=== PATIENT | female | born 1995 | race Caucasian/White ===

== ENCOUNTER → 2017-01-18 13:53 | Observation (INO) ==
--- NOTE | 2017-01-18 13:48 | Discharge Summary ---
Date of Encounter: 01/18/17 Time of Encounter: 13:48 - Discharge Diagnosis (1) Vaginal bleeding during , antepartum Priority: Primary Status: Acute Comments: Patient presents to L&D for concerns of vaginal bleeding that occurred after intercourse. She states that this occurred two days ago, initally bright red when wiped in bathroom and then light pink for the next day. Pt has not noted any bleeding today. States feel like her abdomen is getting tight on occasion. but not painful. Denies any loss of fluid, discharge or any other vaginal bleeding. She reports good movement. Denies any complications with the FHR reactive on the monitor baseline 135 Speculum exam was performed, no bleeding, thick white normal discharge of noted. Cervix was visually closed Recommended pelvic rest for 2-3 weeks and follow up with Dr. Worthington (2) 32 weeks gestation of Priority: Secondary Status: Acute Comments: patient is 32w1d. Patient reported vaginal bleeding after intercourse. no other complaints or complications with the . - Discharge Medications Home Medications: Vit #108/Iron/FA [ One Tablet] 1 each PO DAILY #90 tablet 04/12 [Rx] Allergies/Adverse Reactions: 3 Allergy/AdvReac Type Severity Reaction Status Date / Time No Known Drug Allergies Allergy See Verified 01/18/17 13:12 Comments Date of admission: 01/18/17 12:45 Primary care physician: Jodi Capellan, Discharging clinician: Kevin Lagunas Anticipated date of discharge: 01/18/17 - Patient Status Disposition: Home, Self-Care Condition: Good Functional capacity at discharge: independent ambulation Overall status at discharge: patient is back to baseline - Discharge Instructions Follow Up With: Jodi Capellan MD [Primary Care Provider] - Additional Instructions: LABOR AND DELIVERY DISCHARGE INSTRUCTIONS Signs and Symptoms to be Reported to your Doctor Immediately: * Sudden gush, continuous or intermittent lead of fluid from vagina (note the time of gush and color of fluid) * Onset of bright red vaginal bleeding with or without pain (if you had a vaginal exam during this visit you may notice some dark red spotting. This is normal.) * Lower abdominal cramping or backache that is premenstrual-like feeling. * More than 6 contractions in one hour. * Burning during urination, having to urinate more frequently or pain in your mid-back. * A change in the baby's activity. This could be an increase or decrease in activity. * Severe headache which does not go away with tylenol. * Sudden swelling in the face, hands, arms and/or legs. * Upper abdominal pain - sometimes associated with heartburn or nausea and is not relieved by Maalox, Mylanta or Tums. * Dizziness or blurred vision or visual disturbances (seeing stars/lights). * Kick Counts One hour after a meal, lay down on one side in a quiet place. Count the number of lorie the baby moves during an hour. If less than 6 movements, notify your physician. Diet: *Force fluids - 8-10 tall glasses of fluid per day. May include popsicles and jello. 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 - Extremities Exam Extremities exam IM: Present: full ROM, normal capillary refill. Absent: calf tenderness, pedal edema - Neurological Exam Neurological exam: alert, oriented X3 - VTE Reasons for not Prescribing Prophylaxis: Treatment not Indicated - Low risk for VTE
[2017-01-18 14:26] LABS: Bilirubin,Urine Negative (Negative); Blood,Urine Negative (Negative); Clarity,Urine Clear (Clear); Color,Urine Yellow (Yellow); Glucose,Urine (UA) Normal (Normal); Ketones,Urine Negative (Negative); Leukocyte Esterase,Urine Small (Negative); Nitrite,Urine Negative (Negative); Protein,Urine Negative (Neg-Trace); Specific Gravity,Urine 1.013 (1.010-1.025); Urobilinogen,Urine Normal (Normal)
[2017-01-18 14:28] LABS: Bacteria,Urine None Seen per hpf (None-Few); Hyaline Casts,Urine None Seen per lpf (None-Few); RBC,Urine 0-3 per hpf (0-3); Squamous Epithelial Cell,Urine Many per lpf (None-Few); WBC,Urine 0-3 per hpf (0-3)
[2017-01-18 14:33] LABS: Amphetamine Screen,Urine Negative ng/mL (Cutoff=1000); Barbiturate Screen,Urine Negative ng/mL (Cutoff=200); Benzodiazepines Screen,Urine Negative ng/mL (Cutoff=200); Cannabinoid Screen,Urine Negative ng/mL (Cutoff = 50); Cocaine Screen,Urine Negative ng/mL (Cutoff= 300); Opiate Screen,Urine Negative ng/mL (Cutoff=300); Phencyclidine Screen,Urine Negative ng/mL (Cutoff=25)
== END | disposition home or self-care (01) ==
LOC: 1NENULAB
PROVIDERS: ADMIT Obstetrics & Gynecology; ATTEND Obstetrics & Gynecology

== ENCOUNTER 2017-03-06 16:07 | Inpatient (IN) ==
[2017-03-06 12:19] LABS: Basophils % 0.2 %; Eosinophils # 0.1 K/mcL (0.0-0.6); Eosinophils % 0.3 %; Hematocrit 41.8 % (35.3-44.9); Hemoglobin 13.6 g/dL (11.5-15.4); Immature Granulocytes % 0.5 % (0-4); Lymphocytes # 1.3 K/mcL (0.6-4.6); Mean Corpuscular HGB Conc 32.5 g/dL (31.6-35.5); Mean Corpuscular Hemoglobin 27.7 pg (28.0-33.3); Mean Corpuscular Volume 85.1 fL (83.0-100.0); Monocytes # 0.9 K/mcL (0.0-1.3); Monocytes % 5.4 %; Neutrophils # 14.1 K/mcL (1.6-8.9); Platelet Count 277 K/mcL (140-400); Red Blood Count 4.91 M/mcL (3.82-4.97); Red Cell Distribution Width 13.6 % (11.5-14.5); Segmented Neutrophils % 85.6 %
[2017-03-06 12:35] LABS: Alanine Aminotransferase 12 Units/L (7-52); Aspartate Amino Transferase 20 Units/L (13-39); BUN/Creatinine Ratio 14 (6-26); Blood Urea Nitrogen 11 mg/dL (6-20); Lactate Dehydrogenase 170 Units/L (140-271); Uric Acid 4.4 mg/dL (2.3-7.6); eGFR For African Americans > 60 (> 60); eGFR For Non-African Americans > 60 (> 60)
--- NOTE | 2017-03-06 15:40 | OB/GYN History & Physical ---
Date of Encounter: 03/06/17 Time of Encounter: 15:34 Assessment and Plan (1) 38 weeks gestation of Current visit: No Status: Acute (2) Hx of calculus of kidney during Current visit: No Status: Acute Retroperitoneum Ultrasound 03/06/17 11:58 IMPRESSION: Nonobstructing bilateral renal calculi. Moderate bilateral hydronephrosis, right greater than left. This may be secondary to late , although, ureteral calculus would be in the differential. Discussed with Dr. Guan. Pain management with dilaudid at this time, IV hydration LR @200/hr, Will start IOL at midnight when 39+0 weeks. (3) Encounter for induction of labor Current visit: Yes Status: Acute Induction of labor at midnight when 39+0 weeks with cytotec and cervical navarrete. History of Present Illness Chief complaint: Left flank pain HPI: Ms. Diaz is a 21 year old female under care of Dr. Worthington presents to triage with complaints of left flank pain that is began at 9am this morning, pt rates pain 10/10. Pt states she has similar pain earlier in and thinks she had kidney stones, but only took Tylenol. ED report shows no kidney stones. Reports good movement, states feels occasional cramping or contractions and denies leaking of fluid. Labs:A+, Rubella non-immune, Varicella immune, GBS negative, all other serologies negative. Past Med Surg Social Fam HX - Past Medical History Medical history: no medical history Psychiatric history: no psych history - Past Surgical History Surgical History: no surgical history - Social History Smoking Status: Never smoker Smokeless Tobacco Status: No Alcohol use: none Drug use: none - Family History Mother Adopted: No Living Status: Still Living Hx Family Cardiac Disorders: No Hx Family Respiratory Disorders: No Hx Family Cancer: No Hx Family GI Disorders: No Hx Family Endocrine Disorder: No Hx Family Neuromuscular Disorders: No Hx Family Neurologic Disorders: No Hx Family HEENT Disorders: No Hx Family Autoimmune Disorders: No Obstetrical History - Pregnancies : 2 Para: 0 Term: 0 : 0 Ab's: 1 Livin Medications and Allergies Vit #108/Iron/FA [ One Tablet] 1 each PO DAILY #90 tablet 04/12 [Rx] 3 Allergy/AdvReac Type Severity Reaction Status Date / Time No Known Drug Allergies Allergy See Verified 01/18/17 13:12 Comments Exam - Constitutional Constitutional: well developed, well nourished, average body habitus - Neck Neck exam: full ROM - Lungs Respiratory exam: CTAB - Cardiovascular Cardiovascular exam: RRR - Abdomen Abdomen: Present: bowel sounds normal, gravid, non tender - Extremities Extremities exam: normal inspection - Vagina Vagina: Present: normal moisture - Cervix Dilation: 3 Effacement: 80 Station: -2 - Uterus Uterus exam: Present: normal size, normal contour (Left CVA tenderness. ) Results Result Diagrams: 03/06/17 12:00 03/06/17 12:00 Abnormal lab results WBC 16.5 K/mcL (4.3-11.1) H 03/06/17 12:00 MCH 27.7 pg (28.0-33.3) L 03/06/17 12:00 Neutrophils # 14.1 K/mcL (1.6-8.9) H 03/06/17 12:00 All other labs normal. - VTE Reasons for not Prescribing Prophylaxis: Treatment not Indicated - Low risk for VTE
[2017-03-06 15:46] LABS: Bilirubin,Urine Negative (Negative); Blood,Urine Large (Negative); Clarity,Urine Cloudy (Clear); Color,Urine Yellow (Yellow); Glucose,Urine (UA) Normal (Normal); Ketones,Urine Trace mg/dL (Negative); Leukocyte Esterase,Urine Large (Negative); Nitrite,Urine Negative (Negative); PH,Urine 6.5 pH Units (5.0-8.0); Protein,Urine Negative (Neg-Trace); Specific Gravity,Urine 1.008 (1.010-1.025); Urobilinogen,Urine Normal (Normal)
[2017-03-06 15:47] LABS: Hyaline Casts,Urine None Seen per lpf (None-Few); RBC,Urine 15-30 per hpf (0-3); Squamous Epithelial Cell,Urine Many per lpf (None-Few)
[2017-03-06 15:53] LABS: Amphetamine Screen,Urine Negative ng/mL (Cutoff=1000); Barbiturate Screen,Urine Negative ng/mL (Cutoff=200); Benzodiazepines Screen,Urine Negative ng/mL (Cutoff=200); Cannabinoid Screen,Urine Negative ng/mL (Cutoff = 50); Cocaine Screen,Urine Negative ng/mL (Cutoff= 300); Opiate Screen,Urine Negative ng/mL (Cutoff=300); Phencyclidine Screen,Urine Negative ng/mL (Cutoff=25)
[2017-03-06 16:02] LABS: Bacteria,Urine Few per hpf (None-Few)
[~2017-03-06 16:07] MED LIST: *HR* Nalbuphine 20 MG/ML AMPUL IVP PRN; *HR* Nalbuphine 20 MG/ML AMPUL ONE; Famotidine 20 MG/2 ML VIAL IVP PRN; Naloxone 0.4 MG/ML INJ IVP PRN; Ondansetron 4 MG/2 ML VIAL IVP PRN; Ringers Solution, Lactated 1,000 ML IVC ONE; Ringers Solution, Lactated 1,000 ML IVC SCH; Ringers Solution, Lactated 1,000 ML ONE
[2017-03-06] MEDS: *HR* HYDROmorphone 2 MG/ML SYRINGE IVP PRN (16:07)
[2017-03-06] MEDS ORDERED: Ringers Solution, Lactated 1,000 ML IVC SCH (16:09)
[2017-03-06] MEDS ORDERED: Bupivacaine-MPF 0.25% 10 ML VIAL ONE (18:37)
[2017-03-06] MEDS ORDERED: Epidural Premix (fent/bupiv) 110 ML EP ONE (18:37)
[2017-03-06] MEDS ORDERED: *HR* FentaNYL (PF) 100 MCG/2 ML VIAL ONE (18:37)
--- NOTE | 2017-03-06 19:15 | Anesthesia Evaluation PreOp ---
Date of Encounter: 03/06/17 Time of Encounter: 19:13 - Past History Planned Operation: ELLEN Cardiac History: Denies any Significant Hx Pulmonary History: Denies Any Significant HX PIPE CAULKER History: Denies Any Significant HX Other Medical History: Denies Any Significant HX Anesthesia History: No Prior Anesthetic Complications (never had any procedure requiring GA or NA; denies family h/o GA complications) : Yes Test: Positive Alcohol Use: none Drug use: none Medications and Allergies Vit #108/Iron/FA [ One Tablet] 1 each PO DAILY #90 tablet 04/12 [Rx] 3 Allergy/AdvReac Type Severity Reaction Status Date / Time No Known Drug Allergies Allergy See Verified 01/18/17 13:12 Comments - Meds/Allergy Pre-op Review Medications Reviewed: Yes Allergies Reviewed: Yes Beta Blockers on Current Med List: No Anesthesia Results - Labs 03/06/17 12:00 03/06/17 12:00 Anesthesia Exam 135/86, HR 96, RR 18 Height: 1.57m Weight: 71kg NPO (# of Hours): solids > 8hrs Pain Scale: 5 Pain Scale Used: Jauregui-Padilla (Faces) - HEENT Pupil (Motor): Pupils equal Mallampati: II Teeth: Normal Oral Opening: Greater than 3 - PIPE CAULKER LOC: Oriented PIPE CAULKER Motor: Normal RUE, Normal LUE, Normal RLE, Normal LLE, Normal Face PIPE CAULKER Sensory: Normal: RUE, LUE, RLE, LLE, Face - Cardiac Rhythm: Regular Murmur: None - Pulmonary Breath Sounds: bilateral Clear Respiratory Effort: Symmetrical Anesthesia Assess/Plan ASA Score: 2 Modified [place] Scale for Level of Consciousness: Cooperative, oriented, and tranquil Anesthetic Plan: Regional Autologous Blood: No Monitoring Plan: Standard Monitors Recovery Plan: Other
[2017-03-06] MEDS ORDERED: Bupivacaine-MPF 0.25% 10 ML VIAL EP ONE (19:17)
[2017-03-06] MEDS ORDERED: *HR* FentaNYL (PF) 100 MCG/2 ML VIAL EP ONE (19:17)
--- NOTE | 2017-03-06 19:17 | Anesthesia Procedures ---
Date of Encounter: 03/06/17 Time of Encounter: 19:15 Procedures: Anesthesia - Epidural/Spinal Patient ID/Chart reviewed: Yes Patient examined: Yes OB Eval: Gestational age: 38 weeks 6 days OB Eval: : 2 OB Eval: Hx Para: 0 OB Eval: Dilated at (cm): 3 OB Eval: Contractions: Non-stressed pattern Consent Obtained: Yes Supplemental Oxygen: None/Room Air Site Prep: Aseptic Technique, Sterile prep and drape, Povidone-Iodine 1% Patient position: upright Local Anesthetic: Lidocaine 1% Amount of Local Anesthetic used: 3 Touhy Needle Gauge: 18 Touhy Needle Depth (cm): 5 Catheter Depth at Skin (cm): 10 Test Dose (1.5% Lido + Epi): Volume given (mls): 5 Test Dose Result: Negative Loading Dose: 0.25% Marcaine (mls): 5 Loading Dose: Fentanyl (mcg): 100 Loading Dose Administered: Thru Catheter Infusion Med: 0.125% Bupivacaine w/ 2 mcg/ml Fentanyl Infusion Rate (mls/hr): [address]: Tegaderm, Tape Interspace Used: L4-L5 Loss of Resistance (COOPER): Yes Blood: No CSF: No Paresthesia: No Vitals + FHT's: please see Thom LEHMAN's electronic records for VS
[2017-03-06] MEDS ORDERED: Epidural Premix (fent/bupiv) 110 ML EP SCH (19:30)
--- NOTE | 2017-03-06 23:41 | OB Labor Progress Note ---
Date of Encounter: 03/06/17 Time of Encounter: 23:39 Labor Progress Note - Subjective Subjective: Pt resting comfortable with epidural - Vital Signs Vital Signs: 137/81 - Cervix Cervix: 3/90/-2 - Heart Tones Heart Tones: 135/moderate/+accels/-decels - [place]: 2-4 - Interventions Interventions: Cervical navarrete placed without difficulty - Plan Plan: Start pitcoin at 0000 Plan of care discussed with Dr. Guan . Anticipate
[2017-03-07] MEDS ORDERED: Oxytocin 20 units/ LR 1000 mL 20 UNIT/1,000 ML BAG IVC ONE (00:13)
[2017-03-07] MEDS ORDERED: Oxytocin 20 units/ LR 1000 mL 20 UNIT/1,000 ML BAG IVC SCH ×2 (00:30→17:09)
[2017-03-07] MEDS ORDERED: Epidural Premix (fent/bupiv) 110 ML EP ONE ×2 (01:55→08:02)
[2017-03-07] MEDS ORDERED: Penicillin G Potassium 5,000,000 UNIT in 0.9 % Sodium Chloride Mini Bag 100 ML IVPB ONE (07:04)
[2017-03-07] MEDS ORDERED: Acetaminophen 325 MG TABLET PO PRN ×2 (07:10→17:09)
--- NOTE | 2017-03-07 07:24 | OB Labor Progress Note ---
Date of Encounter: 03/07/17 Time of Encounter: 07:22 Labor Progress Note - Subjective Subjective: Pt resting comfortable with epidural - Cervix Cervix: [address] Guan - Heart Tones Heart Tones: 145/moderate/+accels/-decels - [place]: 1.5-3 - Interventions Interventions: AROM per Dr. Guan - Plan Plan: Continue pitocin per policy Anticipate
[2017-03-07] MEDS ORDERED: Penicillin G Potassium 2,500,000 UNIT in D5% in Water 100 ML IVPB SCH (08:00)
[2017-03-07] MEDS ORDERED: *HR* FentaNYL (PF) 100 MCG/2 ML VIAL ONE (08:48)
[2017-03-07] MEDS ORDERED: Bupivacaine-MPF 0.25% 10 ML VIAL ONE (08:48)
[2017-03-07] MEDS ORDERED: Lidocaine/EPI 1:200k 2% PF 20 ML VIAL ONE (08:48)
--- NOTE | 2017-03-07 08:56 | Anesthesia Progress Note ---
Date of Encounter: 03/07/17 Time of Encounter: 08:55 Anesthesia Note - Note Note: 03/07/17 08:55 called for increased pain during labor. pt having more kidney pain d/t active and acute kidney stones. bolus given of 2.5 ml of 2% lidocaine with epi and 2.5ml of .25% bupivacaine with 100 mcg fentanyl. pt tolerating labor. at 8 cm. increased rate to 18 ml/hr
[2017-03-07] MEDS ORDERED: Penicillin G Potassium 2,500,000 UNIT in 0.9 % Sodium Chloride 100 ML IVPB SCH (11:00)
[2017-03-07] MEDS ORDERED: ceFAZolin 1,000 MG in Water for inj. (sterile) 20 ML 10 ML IVP SCH ×2 (11:00→16:00)
--- NOTE | 2017-03-07 11:29 | OB Labor Progress Note ---
Date of Encounter: 03/07/17 Time of Encounter: 11:28 Labor Progress Note - Subjective Subjective: Pt comfortable following redose of epidural. - Cervix Cervix: 9cm per RN - Heart Tones Heart Tones: Category I - [place]: 1-2 minutes - Plan Plan: Continue to monitor and reposition. Anticipate .
[2017-03-07] MEDS ORDERED: *HR* HYDROmorphone (PF) 1 MG/ML SYRINGE IVP ONE (14:40)
--- NOTE | 2017-03-07 14:45 | OB/GYN Procedure Note ---
Delivery - Delivery Date: 03/07/17 Provider: Christina Morgan Intrapartum events: none Delivery induction: oxytocin, navarrete Delivery augmentation: rupture of membranes Delivery monitor: external FHT, external uterine Anesthesia: epidural Estimated Blood Loss: 150 - Infant (s) Infant A Delivery Date: 03/07/17 Delivery Time: 14:18 Presentation: vertex Position: OA Route of delivery: Gender: Female Viability: Viable Pounds: 7 Ounces: 3 at 1 minute: 2 at 5 mins: 3 at 10 mins: 4 Shoulder Dystocia: encountered Shoulder Dystocia Maneuvers: Tomeka maneuver, suprapubic pressure, Mcguire Screw maneuver Shoulder dystocia time elapsed: 15 seconds Specimens collected: cord blood, venous cord gases, arterial cord gases Placenta: spontaneous Cord: nuchal cord, 3 umbilical vessels, delivered through nuchal - Repair Episiotomy: none Laceration Description: None - Complications Delivery complications: none - Disposition Mom disposition: stable in LDR [place] disposition: taken to nursery - Comments Comments: Pt progressed normally to over intact perineum for viable female . A tight nuchal was delivered through. A shoulder dystocia was encountered and tomeka maneuver and suprapubic pressure were initiated. The infant was in OTTO position. Gentle pressure was applied to the posterior aspect of the anterior shoulder. The shoulders then delivered under maternal expulsive effort only. After stimulation the infant was noted to have poor tone so the cord was clamped and cut and the was taken to the warmer for further assessment. The placenta delivered spontaneous and intact. A right labial laceration was noted but was hemostatic and not repaired. EBL 150ml.
[2017-03-07] MEDS: *HR* HYDROmorphone 2 MG/ML SYRINGE IVP PRN (14:47)
[2017-03-07] MEDS ORDERED: Ibuprofen 600 MG TABLET PO PRN (17:09)
[2017-03-07] MEDS ORDERED: Measles/Mumps/Rubella Vacc 0.5 ML VIAL SQ PRN (17:09)
[2017-03-07] MEDS ORDERED: *HR* HYDROcodone/Acet 5/325 mg TABLET PO PRN (17:09)
[2017-03-07] MEDS ORDERED: cefTRIAXone 2,000 MG in Water for inj. (sterile) 20 ML 20 ML IVP SCH (18:00)
[2017-03-07 18:18] LABS: Basophils % 0.2 %; Hemoglobin 12.6 g/dL (11.5-15.4)
[2017-03-07 18:20] LABS: Basophils # 0.1 K/mcL (0.0-0.2); Hematocrit 37.2 % (35.3-44.9); Immature Granulocytes % 0.7 % (0-4); Lymphocytes % 3.3 %; Mean Corpuscular HGB Conc 33.9 g/dL (31.6-35.5); Mean Corpuscular Hemoglobin 28.4 pg (28.0-33.3); Mean Platelet Volume 10.7 fL (9.4-12.4); Monocytes # 2.1 K/mcL (0.0-1.3); Monocytes % 6.9 %; Neutrophils # 26.6 K/mcL (1.6-8.9); Platelet Count 246 K/mcL (140-400); Red Blood Count 4.43 M/mcL (3.82-4.97); Red Cell Distribution Width 13.9 % (11.5-14.5); Segmented Neutrophils % 88.9 %
[2017-03-07 18:31] LABS: Potassium 3.8 mEq/L (3.5-5.1)
[2017-03-07 18:36] LABS: Platelet Estimate Normal (Normal)
[2017-03-07 18:37] LABS: Anisocytosis 1+ (Not Present)
[2017-03-07] MEDS ORDERED: *HR* HYDROmorphone (PF) 1 MG/ML SYRINGE IVP PRN (21:58)
[2017-03-07] MEDS ORDERED: Ondansetron 4 MG/2 ML VIAL IVP PRN (21:58)
[2017-03-08] MEDS: Ringers Solution, Lactated 1,000 ML IVC SCH ×2 (00:05→06:30)
[2017-03-08 06:45] LABS: Basophils # 0.1 K/mcL (0.0-0.2); Basophils % 0.3 %; Eosinophils # 0.1 K/mcL (0.0-0.6); Eosinophils % 0.6 %; Hematocrit 33.7 % (35.3-44.9); Hemoglobin 11.4 g/dL (11.5-15.4); Immature Granulocytes % 0.5 % (0-4); Mean Corpuscular HGB Conc 33.8 g/dL (31.6-35.5); Mean Corpuscular Hemoglobin 28.4 pg (28.0-33.3); Mean Corpuscular Volume 83.8 fL (83.0-100.0); Mean Platelet Volume 10.7 fL (9.4-12.4); Monocytes # 1.7 K/mcL (0.0-1.3); Monocytes % 7.6 %; Neutrophils # 18.4 K/mcL (1.6-8.9); Platelet Count 222 K/mcL (140-400); Red Blood Count 4.02 M/mcL (3.82-4.97); Red Cell Distribution Width 14.1 % (11.5-14.5)
[2017-03-08 06:54] LABS: BUN/Creatinine Ratio 11 (6-26); Blood Urea Nitrogen 13 mg/dL (6-20); Calcium 7.9 mg/dL (8.6-10.3); Carbon Dioxide 23 mEq/L (23-29); Chloride 106 mEq/L (98-107); Glucose 86 mg/dL (70-105); Osmolality,Calculated 279 (280-300); Potassium 3.8 mEq/L (3.5-5.1); Sodium 135 mEq/L (136-145); eGFR For African Americans > 60 (> 60); eGFR For Non-African Americans 56 (> 60)
--- NOTE | 2017-03-08 08:08 | Urology - Consult Note ---
Date of Encounter: 03/08/17 Time of Encounter: 08:06 - Assessment and Plan (1) Left ureteral calculus Current Visit: Yes Status: Acute Assessment and plan: to or today for cysto and left ureteral stent placement. Urology CN:HPI Consult date: 03/08/17 Reason for consult Urology: Other (left upj stone) Requesting physician: Christina Morgan History of present illness: Hanane is a 21 y/o female with history of kidney stones with . she states that she passed one stone during . severe left flank pain last night after delivery. ct showed left 8mm upj stone. pain controlled. serum creatinine improved overnight with fluids. Past Med Surg Social Fam HX - Past Medical History Medical history: no medical history Psychiatric history: no psych history - Past Surgical History Surgical History: no surgical history - Social History Smoking Status: Never smoker Smokeless Tobacco Status: No Alcohol use: none Drug use: none - Family History Mother Adopted: No Living Status: Still Living Hx Family Cardiac Disorders: No Hx Family Respiratory Disorders: No Hx Family Cancer: No Hx Family GI Disorders: No Hx Family Endocrine Disorder: No Hx Family Neuromuscular Disorders: No Hx Family Neurologic Disorders: No Hx Family HEENT Disorders: No Hx Family Autoimmune Disorders: No Medications and Allergies Vit #108/Iron/FA [ One Tablet] 1 each PO DAILY #90 tablet 04/12 [Rx] 3 Allergy/AdvReac Type Severity Reaction Status Date / Time No Known Drug Allergies Allergy See Verified 01/18/17 13:12 Comments Review of Systems - Constitutional no chills, no fatigue, no fever(s) - Cardiovascular no chest pain - Respiratory no cough Exam Initial Vital Signs Temp Pulse Resp BP Pulse Ox 97.9 F 84 16 121/91 96 03/07/17 17:30 03/07/17 17:30 03/07/17 17:30 03/07/17 17:30 03/07/17 17:30 - General physical appearance Present: well developed - Cardiovascular Cardiovascular exam IM: RRR - Abdomen Abdomen: Present: soft (mildly tender secondary to recent ) Urology Results - Labs 03/08/17 06:25 03/08/17 06:25 Abnormal lab results WBC 22.5 K/mcL (4.3-11.1) H 03/08/17 06:25 Hgb 11.4 g/dL (11.5-15.4) L 03/08/17 06:25 Hct 33.7 % (35.3-44.9) L 03/08/17 06:25 Neutrophils # 18.4 K/mcL (1.6-8.9) H 03/08/17 06:25 Monocytes # 1.7 K/mcL (0.0-1.3) H 03/08/17 06:25 Anisocytosis 1+ (Not Present) A 03/07/17 18:09 Sodium 135 mEq/L (136-145) L 03/08/17 06:25 Creatinine 1.22 mg/dL (0.60-1.20) H 03/08/17 06:25 Est GFR (Non-Af Amer) 56 (> 60) L 03/08/17 06:25 Calculated Osmolality 279 (280-300) L 03/08/17 06:25 Calcium 7.9 mg/dL (8.6-10.3) L 03/08/17 06:25 Urine Clarity Cloudy (Clear) A 03/06/17 15:36 Ur Specific Mallie 1.008 (1.010-1.025) L 03/06/17 15:36 Urine Ketones Trace mg/dL (Negative) H 03/06/17 15:36 Urine Blood Large (Negative) H 03/06/17 15:36 Ur Leukocyte Esterase Large (Negative) H 03/06/17 15:36 Urine Microscopic RBC 15-30 per hpf (0-3) H 03/06/17 15:36 Urine Microscopic WBC 5-15 per hpf (0-3) H 03/06/17 15:36 Ur Squamous Epith Cells Many per lpf (None-Few) H 03/06/17 15:36 Diabetes panel 03/07/17 03/08/17 Range/Units 18:09 06:25 Sodium 134 L 135 L (136-145) mEq/L Potassium 3.8 3.8 (3.5-5.1) mEq/L Chloride 105 106 (98-107) mEq/L Carbon Dioxide 20 L 23 (23-29) mEq/L BUN 17 13 (6-20) mg/dL Creatinine 1.78 H 1.22 H (0.60-1.20) mg/dL Glucose 111 H 86 (70-105) mg/dL Calcium 8.0 L 7.9 L (8.6-10.3) mg/dL Calcium panel 03/07/17 03/08/17 Range/Units 18:09 06:25 Calcium 8.0 L 7.9 L (8.6-10.3) mg/dL Pituitary panel 03/07/17 03/08/17 Range/Units 18:09 06:25 Sodium 134 L 135 L (136-145) mEq/L Potassium 3.8 3.8 (3.5-5.1) mEq/L Chloride 105 106 (98-107) mEq/L Carbon Dioxide 20 L 23 (23-29) mEq/L BUN 17 13 (6-20) mg/dL Creatinine 1.78 H 1.22 H (0.60-1.20) mg/dL Glucose 111 H 86 (70-105) mg/dL Calcium 8.0 L 7.9 L (8.6-10.3) mg/dL Adrenal panel 03/07/17 03/08/17 Range/Units 18:09 06:25 Sodium 134 L 135 L (136-145) mEq/L Potassium 3.8 3.8 (3.5-5.1) mEq/L Chloride 105 106 (98-107) mEq/L Carbon Dioxide 20 L 23 (23-29) mEq/L BUN 17 13 (6-20) mg/dL Creatinine 1.78 H 1.22 H (0.60-1.20) mg/dL Glucose 111 H 86 (70-105) mg/dL Calcium 8.0 L 7.9 L (8.6-10.3) mg/dL All other labs normal. - Imaging CT scan - abdomen: image reviewed CT scan - pelvis: image reviewed
--- NOTE | 2017-03-08 08:27 | OB/GYN Progress Note ---
Date of Encounter: 03/08/17 Time of Encounter: 08:25 - Assessment and Plan (1) Vaginal delivery Current Visit: Yes Status: Acute 21yo G2 now P2 s/p PPD1 Light lochia VSS NPO since MN last night Voiding spontaneously Pain well controlled Start breast pump today Continue care (2) Left ureteral calculus Current Visit: Yes Status: Acute Obstructing renal calculus seen on CT of abdomen Followed by urology Plan to have surgery today Subjective - Subjective Interval history: Pt reports pain well controlled. Reports light lochia and minimal cramping associated with involution. Patient reports: pain well controlled [place]: in NICU Objective - Latest Vital Signs Latest vital signs: Vital Signs Temp Pulse Resp BP Pulse Ox 03/08/17 04:15 98.0 F 83 14 112/70 98 03/07/17 19:30 98.1 F 80 18 125/82 98 03/07/17 18:30 98.1 F 80 16 131/85 98 03/07/17 17:30 97.9 F 84 16 121/91 96 Intake and Output 03/07/17 03/08/17 03/08/17 23:59 07:59 15:59 Intake Total 1400 / 1400 Output Total 400 / 400 1000 / 1000 Balance -400 / -400 400 / 400 Intake: IV Fluids 1000 / 1000 Lactated Ringers 1,000 ML @ 150 1000 / 1000 mls/hr IVC .[id number] [facility] Rx#: [id number] Oral 400 / 400 Output: Urine 400 / 400 1000 / 1000 Other: Weight 73.1 kg 71.713 kg Patient Weight 03/08/17 23:59 Weight 71.713 kg - Exam Lungs: bilateral: normal Chest: Normal S1, Normal S2 Extremities: Present: edema (pedal, non-pitting) Abdomen: Present: normal appearance, soft Uterus: Present: normal, firm Uterus Position: 1 Finger Below Umbilicus, Midline - Labs Labs: Laboratory Results - last 24 hr 03/07/17 03/07/17 03/08/17 18:09 18:09 06:25 WBC 29.9 H D 22.5 H RBC 4.43 4.02 Hgb 12.6 11.4 L Hct 37.2 33.7 L MCV 84.0 83.8 MCH 28.4 28.4 MCHC 33.9 33.8 RDW 13.9 14.1 Plt Count 246 222 MPV 10.7 10.7 Immature Gran % 0.7 0.5 Seg Neutrophils % 88.9 82.0 Lymphocytes % 3.3 9.0 Monocytes % 6.9 7.6 Eosinophils % 0.0 0.6 Basophils % 0.2 0.3 Neutrophils # 26.6 H 18.4 H Lymphocytes # 1.0 2.0 Monocytes # 2.1 H 1.7 H Eosinophils # 0.0 0.1 Basophils # 0.1 0.1 Platelet Estimate Normal Anisocytosis 1+ A Sodium 134 L Potassium 3.8 Chloride 105 Carbon Dioxide 20 L BUN 17 Creatinine 1.78 H Est GFR ( Amer) 44 L Est GFR (Non-Af Amer) 36 L BUN/Creatinine Ratio 10 Glucose 111 H Calculated Osmolality 280 Calcium 8.0 L 03/08/17 06:25 WBC RBC Hgb Hct MCV MCH MCHC RDW Plt Count MPV Immature Gran % Seg Neutrophils % Lymphocytes % Monocytes % Eosinophils % Basophils % Neutrophils # Lymphocytes # Monocytes # Eosinophils # Basophils # Platelet Estimate Anisocytosis Sodium 135 L Potassium 3.8 Chloride 106 Carbon Dioxide 23 BUN 13 Creatinine 1.22 H Est GFR ( Amer) > 60 Est GFR (Non-Af Amer) 56 L BUN/Creatinine Ratio 11 Glucose 86 Calculated Osmolality 279 L Calcium 7.9 L
[2017-03-08] MEDS ORDERED: Prenatal Vit/FA 1 EACH TABLET PO SCH (09:00)
[2017-03-08 09:17] LABS: Protein/Creatinine Ratio,Urine 0.2 mg/mg (0.00-0.20)
--- NOTE | 2017-03-08 10:53 | Anesthesia Evaluation PreOp ---
Date of Encounter: 03/08/17 Time of Encounter: 10:50 - Past History Planned Operation: cysto with left stent Cardiac History: Denies any Significant Hx Pulmonary History: Denies Any Significant HX WINDOW GLASS CUTTER OFF History: Denies Any Significant HX Other Medical History: Denies Any Significant HX Anesthesia History: No Prior Anesthetic Complications : No (just delivered) Alcohol Use: none Drug use: none Medications and Allergies Vit #108/Iron/FA [ One Tablet] 1 each PO DAILY #90 tablet 04/12 [Rx] 3 Allergy/AdvReac Type Severity Reaction Status Date / Time No Known Drug Allergies Allergy See Verified 01/18/17 13:12 Comments - Meds/Allergy Pre-op Review Medications Reviewed: Yes Allergies Reviewed: Yes Beta Blockers on Current Med List: No Anesthesia Results - Labs 03/08/17 06:25 03/08/17 06:25 Anesthesia Exam Selected Entries 03/08/17 08:29 Temperature 97.8 F Pulse Rate 85 Respiratory Rate 16 Blood Pressure 116/64 O2 Sat by Pulse Oximetry 97 Weight: 72kg NPO (# of Hours): 8 - HEENT Pupil (Motor): EOMI Mallampati: II Teeth: Normal Oral Opening: Greater than 3 - WINDOW GLASS CUTTER OFF LOC: Oriented WINDOW GLASS CUTTER OFF Motor: Normal RUE, Normal LUE, Normal RLE, Normal LLE, Normal Face WINDOW GLASS CUTTER OFF Sensory: Normal: RUE, LUE, RLE, LLE, Face - Cardiac Rhythm: Regular Murmur: None - Pulmonary Breath Sounds: bilateral Clear Respiratory Effort: Symmetrical Anesthesia Assess/Plan ASA Score: 1 Modified [place] Scale for Level of Consciousness: Cooperative, oriented, and tranquil Anesthetic Plan: General Monitoring Plan: Standard Monitors (agrees to GA. Will be breast feeding but has not started yet)
[2017-03-08] MEDS ORDERED: *HR* FentaNYL (PF) 100 MCG/2 ML VIAL ONE (11:25)
[2017-03-08] MEDS ORDERED: *HR* Propofol 200 MG/20 ML VIAL IVP ONE (11:25)
[2017-03-08] MEDS ORDERED: Lidocaine -MPF 2% 2 ML VIAL ONE (11:26)
[2017-03-08] MEDS ORDERED: Ondansetron 4 MG/2 ML VIAL ONE (12:03)
[2017-03-08] MEDS ORDERED: Dexamethasone 4 MG/ML VIAL ONE (12:03)
--- NOTE | 2017-03-08 12:10 | Operative Note ---
Date of procedure: 03/08/17 Pre-op diagnosis: left upj stone Post-op diagnosis: same Procedure: Cystoscopy and left 4.8 x 26 cm ureteral stent placement Anesthesia: GETA Surgeon: Alex Mckoy Was there an grooming assistant present: No Estimated blood loss (cc): 0 Specimen: none Condition: stable Disposition: PACU Procedure in Detail: Patient prepped and draped in normal sterile fashion. Timeout procedure performed. I then inserted the cystoscope into the patient's bladder. A Glidewire was then placed into the left kidney using fluoroscopy. I was unable to visualize the stone on fluoroscopy. I then placed a 4.8 x 26 cm stent with good curl seen in the left kidney and in the bladder. Bladder was drained procedure was ended. Patient will need follow-up with me in to 3 weeks to discuss definitive management of left UPJ stone
[2017-03-08] MEDS ORDERED: Measles/Mumps/Rubella Vacc 0.5 ML VIAL SQ PRN (12:16)
[2017-03-08] MEDS ORDERED: *HR* HYDROcodone/Acet 5/325 mg TABLET PO PRN (12:16)
[2017-03-08] MEDS ORDERED: *HR* HYDROmorphone (PF) 1 MG/ML SYRINGE IVP PRN (12:16)
[2017-03-08] MEDS ORDERED: Acetaminophen 325 MG TABLET PO PRN (12:16)
[2017-03-08] MEDS ORDERED: Ibuprofen 600 MG TABLET PO PRN (12:16)
[2017-03-08] MEDS ORDERED: Ringers Solution, Lactated 1,000 ML IVC SCH (12:16)
[2017-03-08] MEDS ORDERED: Ondansetron 4 MG/2 ML VIAL IVP PRN (12:16)
--- NOTE | 2017-03-08 12:45 | Anesthesia Evaluation Post Op ---
Date of Encounter: 03/08/17 Time of Encounter: 12:45 - Vital Signs Vital Signs: Vital Signs/O2 Sat, Most Current Temp Pulse Resp BP Pulse Ox 98.3 F 80 16 121/80 95 03/08/17 12:41 03/08/17 12:41 03/08/17 12:41 03/08/17 12:41 03/08/17 12:41 - Lungs Lungs: Clear Ascult./Percussion - Airway Airway: Non-obstructed - Cardiovascular Regular Rate - Mental Status Mental Status: Alert & Oriented, Answers Appropriately - Pain Pain Scale: 0 Pain Scale used: Numeric (1 - 10) - Nausea Vomiting Nausea Vomiting: Not Present - Hydration Hydration: NPO, Has not voided - Discharge PostOp Status: Transfer Patient to floor
[2017-03-08] MEDS ORDERED: cefTRIAXone 2,000 MG in Water for inj. (sterile) 20 ML 20 ML IVP SCH (18:00)
[2017-03-09 07:54] VITALS: BP 104/70
[2017-03-09] MEDS ORDERED: Prenatal Vit/FA 1 EACH TABLET PO SCH (09:00)
--- NOTE | 2017-03-09 13:11 | Discharge Summary ---
Date of Encounter: 03/09/17 Time of Encounter: 13:08 - Discharge Diagnosis (1) Breast feeding status of mother Priority: Secondary Status: Acute Comments: support prn Patient states she already has a breast pump and does not need a RX for one. (2) Left ureteral calculus Priority: Secondary Status: Acute Comments: Follow up with urology as scheduled post stent placement. (3) Vaginal delivery Priority: Primary Status: Acute Comments: Continue routine care Follow up in office in 4 weeks Anticipate discharge today - Discharge Medications Prescriptions: Ibuprofen [Motrin] 600 mg PO Q6HR PRN #60 tablet PRN Reason: Cramping Docusate [Colace] 100 mg PO DAILY #30 capsule Home Medications: Vit #108/Iron/FA [ One Tablet] 1 each PO DAILY #90 tablet 04/12 [Rx] Docusate [Colace] 100 mg PO DAILY #30 capsule 03/08/17 [Rx] Ibuprofen [Motrin] 600 mg PO Q6HR PRN #60 tablet 03/09/17 [Rx] Allergies/Adverse Reactions: 3 Allergy/AdvReac Type Severity Reaction Status Date / Time No Known Drug Allergies Allergy See Verified 01/18/17 13:12 Comments Data Procedures and tests throughout hospitalization: Laboratory Tests 03/06/17 03/06/17 03/06/17 12:00 12:00 15:36 WBC 16.5 H RBC 4.91 Hgb 13.6 Hct 41.8 MCV 85.1 MCH 27.7 L MCHC 32.5 RDW 13.6 Plt Count 277 MPV 11.0 Immature Gran % 0.5 Seg Neutrophils % 85.6 Lymphocytes % 8.0 Monocytes % 5.4 Eosinophils % 0.3 Basophils % 0.2 Neutrophils # 14.1 H Lymphocytes # 1.3 Monocytes # 0.9 Eosinophils # 0.1 Basophils # 0.0 Platelet Estimate Anisocytosis Sodium Potassium Chloride Carbon Dioxide BUN 11 Creatinine 0.80 Est GFR ( Amer) > 60 Est GFR (Non-Af Amer) > 60 BUN/Creatinine Ratio 14 Glucose Calculated Osmolality Uric Acid 4.4 Calcium AST 20 ALT 12 Lactate Dehydrogenase 170 Urine Color Urine Clarity Urine pH Ur Specific [place] Urine Protein Urine Glucose (UA) Urine Ketones Urine Blood Urine Nitrite Urine Bilirubin Urine Urobilinogen Ur Leukocyte Esterase Urine Microscopic RBC Urine Microscopic WBC Ur Squamous Epith Cells Urine Bacteria Hyaline Casts Ur Culture Indicated? Urine Creatinine Protein/Creatinin Ratio Urine Total Protein Urine Opiates Screen Negative Ur Barbiturates Screen Negative Ur Phencyclidine Scrn Negative Ur Amphetamines Screen Negative U Benzodiazepines Scrn Negative Urine Cocaine Screen Negative U Marijuana (THC) Screen Negative 03/06/17 03/06/17 03/07/17 15:36 15:36 18:09 WBC 29.9 H D RBC 4.43 Hgb 12.6 Hct 37.2 MCV 84.0 MCH 28.4 MCHC 33.9 RDW 13.9 Plt Count 246 MPV 10.7 Immature Gran % 0.7 Seg Neutrophils % 88.9 Lymphocytes % 3.3 Monocytes % 6.9 Eosinophils % 0.0 Basophils % 0.2 Neutrophils # 26.6 H Lymphocytes # 1.0 Monocytes # 2.1 H Eosinophils # 0.0 Basophils # 0.1 Platelet Estimate Normal Anisocytosis 1+ A Sodium Potassium Chloride Carbon Dioxide BUN Creatinine Est GFR ( Amer) Est GFR (Non-Af Amer) BUN/Creatinine Ratio Glucose Calculated Osmolality Uric Acid Calcium AST ALT Lactate Dehydrogenase Urine Color Yellow Urine Clarity Cloudy A Urine pH 6.5 Ur Specific [place] 1.008 L Urine Protein Negative Urine Glucose (UA) Normal Urine Ketones Trace H Urine Blood Large H Urine Nitrite Negative Urine Bilirubin Negative Urine Urobilinogen Normal Ur Leukocyte Esterase Large H Urine Microscopic RBC 15-30 H Urine Microscopic WBC 5-15 H Ur Squamous Epith Cells Many H Urine Bacteria Few Hyaline Casts None Seen Ur Culture Indicated? NO. Urine Creatinine 89 Protein/Creatinin Ratio 0.20 Urine Total Protein 18 Urine Opiates Screen Ur Barbiturates Screen Ur Phencyclidine Scrn Ur Amphetamines Screen U Benzodiazepines Scrn Urine Cocaine Screen U Marijuana (THC) Screen 03/07/17 03/08/17 03/08/17 18:09 06:25 06:25 WBC 22.5 H RBC 4.02 Hgb 11.4 L Hct 33.7 L MCV 83.8 MCH 28.4 MCHC 33.8 RDW 14.1 Plt Count 222 MPV 10.7 Immature Gran % 0.5 Seg Neutrophils % 82.0 Lymphocytes % 9.0 Monocytes % 7.6 Eosinophils % 0.6 Basophils % 0.3 Neutrophils # 18.4 H Lymphocytes # 2.0 Monocytes # 1.7 H Eosinophils # 0.1 Basophils # 0.1 Platelet Estimate Anisocytosis Sodium 134 L 135 L Potassium 3.8 3.8 Chloride 105 106 Carbon Dioxide 20 L 23 BUN 17 13 Creatinine 1.78 H 1.22 H Est GFR ( Amer) 44 L > 60 Est GFR (Non-Af Amer) 36 L 56 L BUN/Creatinine Ratio 10 11 Glucose 111 H 86 Calculated Osmolality 280 279 L Uric Acid Calcium 8.0 L 7.9 L AST ALT Lactate Dehydrogenase Urine Color Urine Clarity Urine pH Ur Specific [place] Urine Protein Urine Glucose (UA) Urine Ketones Urine Blood Urine Nitrite Urine Bilirubin Urine Urobilinogen Ur Leukocyte Esterase Urine Microscopic RBC Urine Microscopic WBC Ur Squamous Epith Cells Urine Bacteria Hyaline Casts Ur Culture Indicated? Urine Creatinine Protein/Creatinin Ratio Urine Total Protein Urine Opiates Screen Ur Barbiturates Screen Ur Phencyclidine Scrn Ur Amphetamines Screen U Benzodiazepines Scrn Urine Cocaine Screen U Marijuana (THC) Screen - Impressions ITS Impressions Retroperitoneum Ultrasound 03/06/17 11:58 IMPRESSION: Nonobstructing bilateral renal calculi. Moderate bilateral hydronephrosis, right greater than left. This may be secondary to late , although, ureteral calculus would be in the differential. D/ / Bryan Ballard MD / Bryan Ballard MD Interpreting Provider: Bryan Ballard MD Abdomen/Pelvis CT 03/07/17 21:21 IMPRESSION: Left hydronephrosis and perinephric stranding with obstructing 8 mm left ureteropelvic junction stone. There is dilation of the right renal pelvis and right ureter, likely related by compression due to the rightward leaning enlarged uterus. Moderate amount high density material within the lower uterine segment, cervix and vagina most compatible with blood products. D/ / Norma Romero Cha, MD / Norma Romero Cha, MD Interpreting Provider: Norma Romero Cha, MD Fluoroscopy 03/08/17 00:00 IMPRESSION: Intraprocedural fluoroscopic spot images as above. See separate procedure report for more information. D/ / 03/08/2017 12:18:27 Lele Kelley MD / daryl Interpreting Provider: Lele Kelley MD X-Ray 03/08/17 00:00 IMPRESSION: Intraprocedural fluoroscopic spot images as above. See separate procedure report for more information. D/ / 03/08/2017 12:18:27 Lele Kelley MD / daryl Interpreting Provider: Lele Kelley MD Date of admission: 03/06/17 16:07 Primary care physician: Jodi Capellan, Discharging clinician: Keli Arreola Anticipated date of discharge: 03/09/17 - Patient Status Disposition: Home, Self-Care Condition: Good - Discharge Instructions Follow Up With: Jodi Capellan MD [Primary Care Provider] - - Diet and Activity Activity: resume usual activities as tolerated Diet: regular diet Hospital Course Reason for admission: induction of labor Delivery: Episiotomy: none Laceration: other (labial laceration, no repair) Other procedures: other (Ureteral stent placement due to renal calculi) complications: none Discharge diagnosis: IUP at term delivered [place] baby: female Hospital course: Induction of labor at term for kidney stones, per Riri Morgan CNM. Pt was seen by urology and had a stent placed in L ureter. Pt doing well today and stated her pain is much better. Time Attestation: Total time spent providing and/or coordinating discharge services: Time Spent: Less than 30 minutes Exam - Constitutional Vitals: Temp Pulse Resp BP Pulse Ox 98 F 83 12 104/70 97 03/09/17 07:53 03/09/17 07:53 03/09/17 07:53 03/09/17 07:53 03/09/17 07:53 General appearance IM: cooperative, A&O X 3, pleasant, no acute distress, answers questions appropriately - Respiratory Respiratory exam: Present: CTAB - Cardiovascular Cardiovascular exam IM: Present: RRR, +S1, +S2 - GI/Abdominal GI/Abdominal exam IM: normal bowel sounds, soft - Rectal Rectal exam: deferred - Uterine Tone: Firm Uterus Position: 2 Fingers Below Umbilicus - Extremities Exam Extremities exam IM: Present: full ROM, normal capillary refill, normal inspection, pedal edema, warm, radial pulses palpable and symmetrical - Neurological Exam Neurological exam: alert, oriented X3, reflexes normal
--- NOTE | 2017-03-09 16:09 | Event Note ---
Date of Encounter: 03/09/17 Time of Encounter: 16:08 patient scheduled for 03/23/17 at 1 pm in urology
== END 2017-03-09 16:00 | disposition home or self-care (01) | DRG 560 ==
LOC: 1NENULAB → 1NENUOBS 03-07 16:58
PROVIDERS: ADMIT Obstetrics & Gynecology; ATTEND Obstetrics & Gynecology

== ENCOUNTER 2019-07-18 03:59 | Inpatient (IN) ==
[2019-07-18] MEDS ORDERED: Ondansetron 4 MG/2 ML VIAL IVP PRN ×3 (04:01→13:53)
[2019-07-18] MEDS ORDERED: Naloxone 0.4 MG/ML INJ IVP PRN (04:01)
[2019-07-18] MEDS ORDERED: Famotidine 20 MG/2 ML VIAL IVP PRN (04:01)
[2019-07-18] MEDS ORDERED: Metoclopramide 10 MG/2 ML VIAL IVP PRN ×2 (04:01→13:53)
[2019-07-18] MEDS ORDERED: Lidocaine 1% 20 ML MDV INFILT PRN (04:01)
[2019-07-18] MEDS ORDERED: miSOPROStoL 25 MCG TABLET VG PRN (04:01)
[2019-07-18 04:31] LABS: Basophils # 0.1 K/mcL (0.0-0.2); Basophils % 0.5 %; Eosinophils # 0.2 K/mcL (0.0-0.6); Eosinophils % 2.3 %; Hematocrit 37.5 % (35.3-44.9); Immature Granulocytes % 0.7 % (0-4); Lymphocytes # 2.3 K/mcL (0.6-4.6); Lymphocytes % 21.4 %; Mean Corpuscular Hemoglobin 26.4 pg (28.0-33.3); Mean Corpuscular Volume 82.4 fL (83.0-100.0); Mean Platelet Volume 10.8 fL (9.4-12.4); Monocytes # 1.2 K/mcL (0.0-1.3); Monocytes % 11.4 %; Neutrophils # 6.7 K/mcL (1.6-8.9); Platelet Count 300 K/mcL (140-400); Red Blood Count 4.55 M/mcL (3.82-4.97); Red Cell Distribution Width 14.8 % (11.5-14.5); Segmented Neutrophils % 63.7 %; White Blood Count 10.5 K/mcL (4.3-11.1)
[2019-07-18] MEDS: Ringers Solution, Lactated 1,000 ML IVC SCH ×2 (04:37→09:04)
[2019-07-18 04:39] LABS: Amphetamine Screen,Urine Negative ng/mL (Cutoff=1000); Barbiturate Screen,Urine Negative ng/mL (Cutoff=200); Benzodiazepines Screen,Urine Negative ng/mL (Cutoff=200); Cannabinoid Screen,Urine Negative ng/mL (Cutoff = 50); Cocaine Screen,Urine Negative ng/mL (Cutoff= 300); Opiate Screen,Urine Negative ng/mL (Cutoff=300); Phencyclidine Screen,Urine Negative ng/mL (Cutoff=25)
[2019-07-18] MEDS ORDERED: EPHEDrine 50 MG/ML VIAL IVP PRN (05:11)
[2019-07-18] MEDS ORDERED: Epidural Premix (fent/bupiv) 110 ML EP SCH (05:15)
[2019-07-18] MEDS: *HR* FentaNYL (PF) 100 MCG/2 ML VIAL IVP PRN ×2 (06:22→07:57)
[2019-07-18] MEDS ORDERED: *HR* Morphine Sulfate/PF 10 MG/10 ML AMPUL ONE (10:12)
[2019-07-18] MEDS ORDERED: *HR* Oxytocin 10 UNIT/ML VIAL IM ONE ×2 (10:12→10:59)
[2019-07-18] MEDS ORDERED: *HR* FentaNYL (PF) 100 MCG/2 ML VIAL ONE (10:12)
[2019-07-18] MEDS ORDERED: CeFAZolin 2,000 MG/50 ML BAG IVPB ONE (10:15)
[2019-07-18] MEDS ORDERED: *HR* HYDROmorphone PF 0.5 MG/0.5 ML SYRINGE IVP PRN (10:55)
[2019-07-18] MEDS ORDERED: Acetaminophen IV 1,000 MG/100 ML INFUS..BTL IVPB ONE (10:55)
[2019-07-18] MEDS ORDERED: Ringers Solution, Lactated 1,000 ML ONE (10:59)
[2019-07-18] MEDS ORDERED: Ondansetron 4 MG/2 ML VIAL ONE (11:02)
[2019-07-18] MEDS ORDERED: *HR* Phenylephrine 10 MG/ML VIAL ONE (11:16)
[2019-07-18] MEDS ORDERED: *HR* Promethazine 25 MG/ML VIAL IVP PRN (11:39)
[2019-07-18] MEDS ORDERED: Oxytocin 20 units/ LR 1000 mL 20 UNIT/1,000 ML BAG IVC SCH (13:53)
[2019-07-18] MEDS ORDERED: Ringers Solution, Lactated 1,000 ML IVC SCH (13:53)
[2019-07-18] MEDS ORDERED: Simethicone 80 MG TAB.CHEW PO PRN (13:53)
[2019-07-18] MEDS ORDERED: Rho Immune Globulin 1,500 UNIT SYRINGE IM ONE (13:53)
[2019-07-18] MEDS ORDERED: *HR* OxyCODONE/APAP 5/325 TABLET PO PRN (13:53)
[2019-07-18] MEDS ORDERED: Sennosides 8.6 MG TABLET PO PRN (13:53)
[2019-07-18] MEDS: metroNIDAZOLE 500 MG TABLET PO SCH ×2 (16:13→20:56)
[2019-07-18] MEDS: cephALEXin 500 MG CAPSULE PO SCH ×2 (16:13→20:56)
[2019-07-18] MEDS: Ibuprofen 600 MG TABLET PO PRN (20:56)
[2019-07-19] MEDS: Ibuprofen 600 MG TABLET PO PRN ×3 (03:20→21:16)
[2019-07-19 06:17] LABS: Basophils # 0.1 K/mcL (0.0-0.2); Basophils % 0.3 %; Eosinophils # 0.2 K/mcL (0.0-0.6); Eosinophils % 0.8 %; Hematocrit 37.7 % (35.3-44.9); Hemoglobin 11.8 g/dL (11.5-15.4); Immature Granulocytes % 0.7 % (0-4); Lymphocytes # 1.6 K/mcL (0.6-4.6); Lymphocytes % 8.1 %; Mean Corpuscular HGB Conc 31.3 g/dL (31.6-35.5); Mean Corpuscular Hemoglobin 26.6 pg (28.0-33.3); Mean Corpuscular Volume 85.1 fL (83.0-100.0); Mean Platelet Volume 11.1 fL (9.4-12.4); Monocytes # 1.3 K/mcL (0.0-1.3); Monocytes % 6.5 %; Neutrophils # 16.9 K/mcL (1.6-8.9); Platelet Count 241 K/mcL (140-400); Red Blood Count 4.43 M/mcL (3.82-4.97); Red Cell Distribution Width 14.9 % (11.5-14.5); Segmented Neutrophils % 83.6 %
[2019-07-19 06:18] LABS: White Blood Count 20.2 K/mcL (4.3-11.1)
[2019-07-19] MEDS: metroNIDAZOLE 500 MG TABLET PO SCH ×3 (07:42→21:16)
[2019-07-19] MEDS: Prenatal Vit/FA 1 EACH TABLET PO SCH (07:42)
[2019-07-19] MEDS: cephALEXin 500 MG CAPSULE PO SCH ×3 (07:42→21:15)
[2019-07-19] MEDS ORDERED: NON-FORMULARY MEDICATION 1 EACH EACH (Prenatal Vits96/Iron Fum/Folic [Prenatal Tablet] 1 E PO SCH (09:00)
[2019-07-20] MEDS: Ibuprofen 600 MG TABLET PO PRN (03:45)
[2019-07-20] MEDS ORDERED: Lanolin 7 G OINT...G. TP PRN (06:39)
[2019-07-20] MEDS: metroNIDAZOLE 500 MG TABLET PO SCH (07:35)
[2019-07-20] MEDS: Prenatal Vit/FA 1 EACH TABLET PO SCH (07:35)
[2019-07-20] MEDS: cephALEXin 500 MG CAPSULE PO SCH (07:35)
[2019-07-20 07:48] VITALS: BP 107/72
== END 2019-07-20 13:05 | disposition home or self-care (01) | DRG 540 ==
LOC: 1NENULAB 03:59 → 1NENUOBS 13:58
PROVIDERS: ADMIT Student in an Organized Health Care Education/Training Program; ATTEND Student in an Organized Health Care Education/Training Program

== ENCOUNTER 2019-11-30 09:27 | Observation (INO) ==
[2019-11-30 11:21] LABS: Bacteria,Urine Few per hpf (None-Few); Bilirubin,Urine Negative (Negative); Blood,Urine Moderate (Negative); Clarity,Urine Clear (Clear); Color,Urine Yellow (Yellow); Glucose,Urine (UA) Normal (Normal); Hyaline Casts,Urine Few per lpf (None Seen); Ketones,Urine Negative (Negative); Leukocyte Esterase,Urine Trace (Negative); Mucus,Urine Many per lpf (None-Few); Nitrite,Urine Negative (Negative); Protein,Urine 100 mg/dL (Neg-Trace); RBC,Urine 15-30 per hpf (0-3); Specific Gravity,Urine > 1.030 (1.010-1.025); Squamous Epithelial Cell,Urine Moderate per hpf (None-Few); Urobilinogen,Urine Normal (Normal)
[2019-11-30 11:24] LABS: Basophils % 0.3 %; Hematocrit 43.8 % (35.3-44.9); Hemoglobin 14.1 g/dL (11.5-15.4); Immature Granulocytes % 0.3 % (0-4); Lymphocytes # 0.9 K/mcL (0.6-4.6); Lymphocytes % 5.6 %; Mean Corpuscular HGB Conc 32.2 g/dL (31.6-35.5); Mean Corpuscular Hemoglobin 26.6 pg (28.0-33.3); Mean Corpuscular Volume 82.6 fL (83.0-100.0); Monocytes # 0.6 K/mcL (0.0-1.3); Monocytes % 3.8 %; Neutrophils # 14.1 K/mcL (1.6-8.9); Platelet Count 330 K/mcL (140-400); Red Cell Distribution Width 14.3 % (11.5-14.5); White Blood Count 15.7 K/mcL (4.3-11.1)
[2019-11-30 11:58] LABS: BUN/Creatinine Ratio 27 (6-26); Blood Urea Nitrogen 24 mg/dL (6-20); Carbon Dioxide 24 mEq/L (23-29); Chloride 106 mEq/L (98-107); Glucose 108 mg/dL (70-105); Osmolality,Calculated 295 (280-300); Potassium 4.1 mEq/L (3.5-5.1); Sodium 140 mEq/L (136-145); eGFR For African Americans > 60 (> 60); eGFR For Non-African Americans > 60 (> 60)
[2019-11-30] MEDS ORDERED: Ketorolac 15 MG/ML VIAL IVP ONE (12:36)
[2019-11-30] MEDS ORDERED: Ondansetron 4 MG/2 ML VIAL IVP ONE (12:36)
[2019-11-30] MEDS ORDERED: cefTRIAXone 1,000 MG in Water for inj. (sterile) 10 ML IVP STA (12:36)
[2019-11-30] MEDS ORDERED: 0.9 % Sodium Chloride 1,000 ML IVC ONE (12:36)
[2019-11-30] MEDS ORDERED: Naloxone 0.4 MG/ML INJ IVP PRN ×2 (13:07→18:20)
[2019-11-30] MEDS ORDERED: *HR* OxyCODONE Immed Rel 5 MG TABLET PO PRN ×2 (13:07→18:20)
[2019-11-30] MEDS ORDERED: *HR* HYDROcodone/Acet 5/325 mg TABLET PO PRN ×2 (13:07→18:20)
[2019-11-30] MEDS ORDERED: Ondansetron 4 MG/2 ML VIAL IVP PRN ×3 (13:07→18:20)
[2019-11-30] MEDS ORDERED: Dextrose Gel 15 GM/37.5 ML TUBE PO PRN ×4 (13:13→18:20)
[2019-11-30] MEDS ORDERED: D5% in Water 1,000 ML IVC PRN ×2 (13:13→18:20)
[2019-11-30] MEDS ORDERED: *HR* Dextrose 50 % in Water (Vial) 50 ML VIAL IVP PRN ×2 (13:13→18:20)
[2019-11-30] MEDS ORDERED: 0.9 % Sodium Chloride 1,000 ML IVC SCH (13:15)
[2019-11-30 13:36] LABS: Prothrombin Time 11.9 Seconds (9.4-12.1)
[2019-11-30 13:39] LABS: Activated Partial Thrombo Time 27.9 Seconds (26.0-36.0)
[2019-11-30 14:53] LABS: Adenovirus Not Detected (Not Detect); Coronavirus 229E Not Detected (Not Detect); Coronavirus HKU1 Not Detected (Not Detect); Coronavirus NL63 Not Detected (Not Detect); Coronavirus OC43 Not Detected (Not Detect); Human Metapneumovirus Not Detected (Not Detect); Human Rhinovirus/Enterovirus Not Detected (Not Detect); Influenza A Subtype 2009 H1 Not Detected (Not Detect); Influenza B Not Detected (Not Detect); SARS-CoV-2 Not Detected (Not Detect)
[2019-11-30 14:54] LABS: Bordetella Pertussis Not Detected (Not Detect); Chlamydophila pneumoniae Not Detected (Not Detect); Mycoplasma pneumoniae Not Detected (Not Detect); Parainfluenza Virus 1 Not Detected (Not Detect); Parainfluenza Virus 2 Not Detected (Not Detect); Parainfluenza Virus 3 Not Detected (Not Detect); Parainfluenza Virus 4 Not Detected (Not Detect); Respiratory Syncytial Virus Not Detected (Not Detect)
[2019-11-30] MEDS ORDERED: *HR* Propofol 200 MG/20 ML VIAL IVP ONE ×2 (16:26→17:21)
[2019-11-30] MEDS ORDERED: *HR* Midazolam HCl 2 MG/2 ML VIAL ONE (16:29)
[2019-11-30] MEDS ORDERED: *HR* FentaNYL (PF) 100 MCG/2 ML VIAL ONE (16:29)
[2019-11-30] MEDS ORDERED: Lidocaine -MPF 2% 2 ML VIAL ONE (16:29)
[2019-11-30] MEDS ORDERED: Ondansetron 4 MG/2 ML VIAL ONE (16:30)
[2019-11-30] MEDS ORDERED: Isovue-300 50ML VIAL ONE (16:53)
[2019-11-30] MEDS ORDERED: *HR* HYDROmorphone PF 0.5 MG/0.5 ML SYRINGE IVP PRN (17:09)
[2019-11-30] MEDS ORDERED: *HR* Meperidine 25 MG/ML SYRINGE IVP PRN (17:09)
[2019-11-30] MEDS ORDERED: *HR* Promethazine 25 MG/ML VIAL IVP PRN (17:09)
[2019-11-30] MEDS ORDERED: Dexamethasone 4 MG/ML VIAL ONE (17:20)
[2019-11-30] MEDS ORDERED: Insulin LISPRO 300 UNITS/3 ML VIAL SQ SCH (18:00)
[2019-11-30] MEDS ORDERED: 0.9 % Sodium Chloride 1,000 ML ONE (18:24)
[2019-11-30] MEDS: 0.9 % Sodium Chloride 1,000 ML IVC SCH (18:36)
[2019-12-01 02:02] LABS: Basophils % 0.1 %; Hematocrit 41.3 % (35.3-44.9); Hemoglobin 12.9 g/dL (11.5-15.4); Immature Granulocytes % 0.3 % (0-4); Lymphocytes # 0.8 K/mcL (0.6-4.6); Lymphocytes % 8.5 %; Mean Corpuscular HGB Conc 31.2 g/dL (31.6-35.5); Mean Corpuscular Hemoglobin 25.6 pg (28.0-33.3); Mean Corpuscular Volume 81.9 fL (83.0-100.0); Mean Platelet Volume 10.1 fL (9.4-12.4); Monocytes # 0.1 K/mcL (0.0-1.3); Monocytes % 1.6 %; Neutrophils # 8.1 K/mcL (1.6-8.9); Platelet Count 317 K/mcL (140-400); Red Blood Count 5.04 M/mcL (3.82-4.97); Red Cell Distribution Width 14.6 % (11.5-14.5); Segmented Neutrophils % 89.5 %
[2019-12-01 02:26] LABS: BUN/Creatinine Ratio 28 (6-26); Blood Urea Nitrogen 19 mg/dL (6-20); Calcium 9.4 mg/dL (8.6-10.3); Carbon Dioxide 23 mEq/L (23-29); Chloride 108 mEq/L (98-107); Glucose 134 mg/dL (70-105); Osmolality,Calculated 292 (280-300); Phosphorous 3.7 mg/dL (2.7-4.5); Potassium 4.1 mEq/L (3.5-5.1); Sodium 139 mEq/L (136-145); eGFR For African Americans > 60 (> 60); eGFR For Non-African Americans > 60 (> 60)
[2019-12-01] MEDS: 0.9 % Sodium Chloride 1,000 ML IVC SCH (04:36)
[2019-12-01 06:45] VITALS: BP 109/66
[2019-12-01] MEDS ORDERED: CefTRIAXone 1,000 MG VIAL ONE (08:27)
[2019-12-01] MEDS ORDERED: cefTRIAXone 1,000 MG in Water for inj. (sterile) 10 ML IVP SCH ×2 (09:00)
== END 2019-12-01 11:55 | disposition home or self-care (01) ==
LOC: 3BNU 09:27 → EMEROOARM 09:27 → 3BNU 16:25
PROVIDERS: ADMIT Internal Medicine; ATTEND Internal Medicine